=== PATIENT | female | born 1970 | race Asian ===

== ENCOUNTER 2016-09-09 07:41 | Outpatient (CLI) | payer BC ==
[~2016-09-09 07:41] MED LIST: ALPR0.2566 PO; AMBIEN5 MG OR; CARAFATE1 GM PO; GABA300C2 PO; PANT40TA PO; VALS80CA2 PO
== END 2016-09-09 08:41 | disposition home or self-care (01) ==
LOC: RAD 07:41
DX: R13.10 Dysphagia, unspecified (principal)

== ENCOUNTER 2017-01-05 08:06 | Day surgery (SDC) | payer BC ==
[~2017-01-05] VITALS: Ht 152.4 cm; Wt 68.0 kg
== END 2017-01-05 12:20 | disposition home or self-care (01) ==
LOC: OR 08:06
PROC: 0D758ZZ Dilation of Esophagus, Via Natural or Artificial Opening Endoscopic (ICD-10-PCS; principal; 2017-01-05)
DX: R13.19 Other dysphagia (principal); K22.2 Esophageal obstruction
CPT/HCPCS: J2001; J2704

== ENCOUNTER 2017-01-27 11:15 | Outpatient (CLI) | payer BC | END 2017-01-27 19:04 | disposition home or self-care (01) | LOC: US 11:15 | DX: R10.11 Right upper quadrant pain (principal); R10.13 Epigastric pain ==

== ENCOUNTER 2017-03-23 10:56 | Outpatient (CLI) | payer BC | END 2017-03-23 12:00 | disposition home or self-care (01) | LOC: NM 10:56 | DX: R10.11 Right upper quadrant pain (principal) | CPT/HCPCS: A9537 ==

== ENCOUNTER 2017-04-09 13:57 | Outpatient (CLI) | payer BC ==
[2017-04-09 14:39] LABS: POTASSIUM 3.8 mmol/L (3.6-5.2); SODIUM 139 mmol/L (136-145)
== END 2017-04-09 15:00 | disposition home or self-care (01) ==
LOC: LABW 13:57
PROVIDERS: Student in an Organized Health Care Education/Training Program
DX: R25.2 Cramp and spasm (principal)
CPT/HCPCS: 80048; 83735

== ENCOUNTER 2017-06-07 10:43 | Outpatient (CLI) | payer BC | END 2017-06-07 11:45 | disposition home or self-care (01) | LOC: LABW 10:43 | DX: E53.8 Deficiency of other specified B group vitamins (principal); R53.83 Other fatigue | CPT/HCPCS: 36415; 82607; 82746; 84439; 84443 ==

== ENCOUNTER 2018-09-09 10:04 | Outpatient (CLI) | payer OTHER | END 2018-09-09 19:40 | disposition home or self-care (01) | LOC: MAMMO 10:04 | DX: Z12.31 Encounter for screening mammogram for malignant neoplasm of breast (principal) ==

== ENCOUNTER 2018-12-02 10:07 | Outpatient (CLI) | payer OTHER | END 2018-12-02 23:20 | disposition home or self-care (01) | LOC: MAMMO 10:07 | DX: N63.20 Unspecified lump in the left breast, unspecified quadrant (principal) ==

== ENCOUNTER 2019-03-20 15:52 | Outpatient (CLI) | payer OTHER | END 2019-03-20 23:59 | disposition home or self-care (01) | LOC: RAD 15:52 | DX: M54.30 Sciatica, unspecified side (principal) ==

== ENCOUNTER 2019-04-03 10:24 | Outpatient (CLI) | payer OTHER | END 2019-04-03 22:38 | disposition home or self-care (01) | LOC: MRI 10:24 | DX: M54.41 Lumbago with sciatica, right side (principal) ==

== ENCOUNTER 2019-05-29 08:04 | Outpatient (CLI) | payer OTHER | END 2019-05-29 19:24 | disposition home or self-care (01) | LOC: NM 08:04 | DX: R10.11 Right upper quadrant pain (principal) | CPT/HCPCS: A9537 ==

== ENCOUNTER 2019-06-15 13:46 | Outpatient (CLI) | payer OTHER | END 2019-06-15 19:16 | disposition home or self-care (01) | LOC: LABW 13:46 | DX: Z00.00 Encounter for general adult medical examination without abnormal findings (principal) | CPT/HCPCS: 36415; 80074; 86592; 87535; G0432 ==

== ENCOUNTER 2019-07-28 09:21 | Outpatient (CLI) | payer OTHER ==
[2019-07-28 09:56] LABS: POTASSIUM 3.5 mmol/L (3.6-5.2)
[2019-07-28 10:44] LABS: PLATELET COUNT 365 K/uL (152-353)
== END 2019-07-28 19:27 | disposition home or self-care (01) ==
LOC: LABW 09:21
PROVIDERS: Family Medicine
DX: N95.8 Other specified menopausal and perimenopausal disorders (principal); I10 Essential (primary) hypertension
CPT/HCPCS: 36415; 80053; 80061; 82672; 83001; 84402; 84403; 84443; 84480; 85027

== ENCOUNTER 2019-09-06 14:35 | Outpatient (CLI) | payer OTHER | END 2019-09-06 20:32 | disposition home or self-care (01) | LOC: MRI 14:35 | DX: G50.0 Trigeminal neuralgia (principal) | CPT/HCPCS: A9576 ==

== ENCOUNTER 2019-10-10 12:02 | Outpatient (CLI) | payer OTHER | END 2019-10-10 19:23 | disposition home or self-care (01) | LOC: CT 12:02 | DX: M25.552 Pain in left hip (principal); M54.5 Low back pain ==

== ENCOUNTER 2019-12-25 08:34 | Emergency (ER) | payer OTHER ==
[~2019-12-25] VITALS: Ht 162.6 cm; Wt 95.3 kg
[2019-12-25 08:41] VITALS: TEMP 99.9
[2019-12-25 09:48] VITALS: BP 129/88
== END 2019-12-25 10:00 | disposition home or self-care (01) ==
LOC: ED 08:34
DX: M54.5 Low back pain (principal); M62.830 Muscle spasm of back
CPT/HCPCS: 96372; 99283; J1885

== ENCOUNTER 2020-05-22 12:37 | Outpatient (CLI) | payer OTHER | END 2020-05-22 23:25 | disposition home or self-care (01) | LOC: MAMMO 12:37 | DX: Z12.31 Encounter for screening mammogram for malignant neoplasm of breast (principal) ==

== ENCOUNTER 2020-07-24 08:34 | Outpatient (CLI) | payer OTHER | END 2020-07-24 19:59 | disposition home or self-care (01) | LOC: MRI 08:34 | PROVIDERS: ATTEND Nurse Practitioner Family | DX: M54.5 Low back pain (principal) ==

== ENCOUNTER 2020-10-03 09:01 | Outpatient (CLI) | payer OTHER ==
[2020-10-03 09:29] LABS: PLATELET COUNT 372 K/uL (152-353)
[2020-10-03 09:49] LABS: POTASSIUM 4.5 mmol/L (3.6-5.2)
== END 2020-10-03 21:43 | disposition home or self-care (01) ==
LOC: LABW 09:01
PROVIDERS: ATTEND Internal Medicine Endocrinology, Diabetes & Metabolism
DX: Z01.89 Encounter for other specified special examinations (principal); Z79.899 Other long term (current) drug therapy; R63.5 Abnormal weight gain; R53.83 Other fatigue; K21.9 Gastro-esophageal reflux disease without esophagitis; I10 Essential (primary) hypertension; F41.9 Anxiety disorder, unspecified; F32.9 Major depressive disorder, single episode, unspecified; Z83.3 Family history of diabetes mellitus
CPT/HCPCS: 36415; 80053; 80061; 81000; 82306; 82607; 83036; 85027

== ENCOUNTER 2020-11-04 13:25 | Outpatient (CLI) | payer OTHER ==
[~2020-11-04] VITALS: Ht 162.6 cm; Wt 107.5 kg
== END 2020-11-04 20:51 | disposition home or self-care (01) ==
LOC: DIABINF 13:25
PROVIDERS: ATTEND Internal Medicine Endocrinology, Diabetes & Metabolism
DX: E11.65 Type 2 diabetes mellitus with hyperglycemia (principal); I10 Essential (primary) hypertension; K21.9 Gastro-esophageal reflux disease without esophagitis; F41.1 Generalized anxiety disorder; F33.9 Major depressive disorder, recurrent, unspecified; E55.9 Vitamin D deficiency, unspecified; E66.01 Morbid (severe) obesity due to excess calories; Z68.41 Body mass index [BMI] 40.0-44.9, adult; K59.04 Chronic idiopathic constipation
CPT/HCPCS: 82948; 96365; 96366; 96521; 99204; J1718; J1815

== ENCOUNTER 2020-11-05 13:21 | Outpatient (CLI) | payer OTHER ==
[~2020-11-05] VITALS: Ht 162.6 cm; Wt 107.5 kg
== END 2020-11-05 21:11 | disposition home or self-care (01) ==
LOC: DIABINF 13:21
PROVIDERS: ATTEND Internal Medicine Endocrinology, Diabetes & Metabolism
DX: E11.65 Type 2 diabetes mellitus with hyperglycemia (principal); I10 Essential (primary) hypertension; K21.9 Gastro-esophageal reflux disease without esophagitis; F41.1 Generalized anxiety disorder; F33.9 Major depressive disorder, recurrent, unspecified; E55.9 Vitamin D deficiency, unspecified; E66.01 Morbid (severe) obesity due to excess calories; Z68.41 Body mass index [BMI] 40.0-44.9, adult; K59.04 Chronic idiopathic constipation
CPT/HCPCS: 82948; 96365; 96366; 96521; 99214; J1718; J1815

== ENCOUNTER 2020-11-13 12:46 | Outpatient (CLI) | payer OTHER ==
[~2020-11-13] VITALS: Ht 162.6 cm; Wt 107.5 kg
== END 2020-11-13 21:29 | disposition home or self-care (01) ==
LOC: DIABINF 12:46
PROVIDERS: ATTEND Internal Medicine Endocrinology, Diabetes & Metabolism
DX: E11.65 Type 2 diabetes mellitus with hyperglycemia (principal); I10 Essential (primary) hypertension; K21.9 Gastro-esophageal reflux disease without esophagitis; F41.1 Generalized anxiety disorder; F33.9 Major depressive disorder, recurrent, unspecified; E55.9 Vitamin D deficiency, unspecified; E66.01 Morbid (severe) obesity due to excess calories; Z68.41 Body mass index [BMI] 40.0-44.9, adult; K59.04 Chronic idiopathic constipation
CPT/HCPCS: 82948; 96365; 96366; 96521; 99214; J1718; J1815

== ENCOUNTER 2020-11-18 13:10 | Outpatient (CLI) | payer OTHER ==
[~2020-11-18] VITALS: Ht 162.6 cm; Wt 107.5 kg
== END 2020-11-18 22:30 | disposition home or self-care (01) ==
LOC: DIABINF 13:10
PROVIDERS: ATTEND Internal Medicine Endocrinology, Diabetes & Metabolism
DX: E11.65 Type 2 diabetes mellitus with hyperglycemia (principal); I10 Essential (primary) hypertension; K21.9 Gastro-esophageal reflux disease without esophagitis; F41.1 Generalized anxiety disorder; F33.9 Major depressive disorder, recurrent, unspecified; E55.9 Vitamin D deficiency, unspecified; E66.01 Morbid (severe) obesity due to excess calories; Z68.41 Body mass index [BMI] 40.0-44.9, adult; K59.04 Chronic idiopathic constipation
CPT/HCPCS: 82948; 96365; 96366; 96521; 99214; J1718; J1815

== ENCOUNTER 2020-11-19 13:11 | Outpatient (CLI) | payer OTHER ==
[~2020-11-19] VITALS: Ht 162.6 cm; Wt 107.5 kg
== END 2020-11-19 20:32 | disposition home or self-care (01) ==
LOC: DIABINF 13:11
PROVIDERS: ATTEND Internal Medicine Endocrinology, Diabetes & Metabolism
DX: E11.65 Type 2 diabetes mellitus with hyperglycemia (principal); I10 Essential (primary) hypertension; K21.9 Gastro-esophageal reflux disease without esophagitis; F41.1 Generalized anxiety disorder; F33.9 Major depressive disorder, recurrent, unspecified; E55.9 Vitamin D deficiency, unspecified; E66.01 Morbid (severe) obesity due to excess calories; Z68.41 Body mass index [BMI] 40.0-44.9, adult; K59.04 Chronic idiopathic constipation
CPT/HCPCS: 82948; 96365; 96366; 96521; 99214; J1718; J1815

== ENCOUNTER 2020-11-25 13:11 | Outpatient (CLI) | payer OTHER ==
[~2020-11-25] VITALS: Ht 162.6 cm; Wt 107.5 kg
== END 2020-11-25 19:39 | disposition home or self-care (01) ==
LOC: DIABINF 13:11
PROVIDERS: ATTEND Internal Medicine Endocrinology, Diabetes & Metabolism
DX: E11.65 Type 2 diabetes mellitus with hyperglycemia (principal); I10 Essential (primary) hypertension; K21.9 Gastro-esophageal reflux disease without esophagitis; F41.1 Generalized anxiety disorder; F33.9 Major depressive disorder, recurrent, unspecified; E55.9 Vitamin D deficiency, unspecified; E66.01 Morbid (severe) obesity due to excess calories; Z68.41 Body mass index [BMI] 40.0-44.9, adult; K59.04 Chronic idiopathic constipation
CPT/HCPCS: 82948; 96365; 96366; 96521; 99214; J1718; J1815

== ENCOUNTER 2020-12-03 12:50 | Outpatient (CLI) | payer OTHER ==
[~2020-12-03] VITALS: Ht 162.6 cm; Wt 107.5 kg
== END 2020-12-03 22:04 | disposition home or self-care (01) ==
LOC: DIABINF 12:50
PROVIDERS: ATTEND Internal Medicine Endocrinology, Diabetes & Metabolism
DX: E11.65 Type 2 diabetes mellitus with hyperglycemia (principal); I10 Essential (primary) hypertension; K21.9 Gastro-esophageal reflux disease without esophagitis; F41.1 Generalized anxiety disorder; F33.9 Major depressive disorder, recurrent, unspecified; E55.9 Vitamin D deficiency, unspecified; E66.01 Morbid (severe) obesity due to excess calories; Z68.41 Body mass index [BMI] 40.0-44.9, adult; K59.04 Chronic idiopathic constipation
CPT/HCPCS: 82948; 96365; 96366; 96521; J1815; J1817

== ENCOUNTER 2020-12-09 13:10 | Outpatient (CLI) | payer OTHER ==
[~2020-12-09] VITALS: Ht 162.6 cm; Wt 107.5 kg
== END 2020-12-09 19:55 | disposition home or self-care (01) ==
LOC: DIABINF 13:10
PROVIDERS: ATTEND Internal Medicine Endocrinology, Diabetes & Metabolism
DX: E11.65 Type 2 diabetes mellitus with hyperglycemia (principal); I10 Essential (primary) hypertension; K21.9 Gastro-esophageal reflux disease without esophagitis; F41.1 Generalized anxiety disorder; F33.0 Major depressive disorder, recurrent, mild; E55.9 Vitamin D deficiency, unspecified; E66.01 Morbid (severe) obesity due to excess calories; Z68.41 Body mass index [BMI] 40.0-44.9, adult; K59.04 Chronic idiopathic constipation
CPT/HCPCS: 82948; 96365; 96366; 96521; J1815; J1817

== ENCOUNTER 2020-12-13 08:32 | Outpatient (CLI) | payer OTHER ==
[2020-12-13 09:12] LABS: PLATELET COUNT 368 K/uL (152-353)
== END 2020-12-13 22:17 | disposition home or self-care (01) ==
LOC: LABW 08:32
PROVIDERS: ATTEND Nurse Practitioner
DX: R53.83 Other fatigue (principal); R60.9 Edema, unspecified; R63.5 Abnormal weight gain; Z79.899 Other long term (current) drug therapy
CPT/HCPCS: 36415; 80053; 81000; 82306; 82607; 82746; 83880; 84439; 84443; 85027; 93005

== ENCOUNTER 2020-12-17 12:19 | Outpatient (CLI) | payer OTHER ==
[~2020-12-17] VITALS: Ht 162.6 cm; Wt 107.5 kg
== END 2020-12-17 22:07 | disposition home or self-care (01) ==
LOC: DIABINF 12:19
PROVIDERS: ATTEND Internal Medicine Endocrinology, Diabetes & Metabolism
DX: E11.65 Type 2 diabetes mellitus with hyperglycemia (principal); I10 Essential (primary) hypertension; K21.9 Gastro-esophageal reflux disease without esophagitis; F41.1 Generalized anxiety disorder; F33.0 Major depressive disorder, recurrent, mild; E55.9 Vitamin D deficiency, unspecified; E66.01 Morbid (severe) obesity due to excess calories; Z68.41 Body mass index [BMI] 40.0-44.9, adult; K59.04 Chronic idiopathic constipation
CPT/HCPCS: 82948; 96365; 96366; 96521; J1815; J1817

== ENCOUNTER 2021-01-29 14:43 | Outpatient (CLI) | payer OTHER | END 2021-01-29 22:19 | disposition home or self-care (01) | LOC: LABW 14:43 | PROVIDERS: ATTEND Internal Medicine Endocrinology, Diabetes & Metabolism | DX: E11.65 Type 2 diabetes mellitus with hyperglycemia (principal); I10 Essential (primary) hypertension; E55.9 Vitamin D deficiency, unspecified; E66.01 Morbid (severe) obesity due to excess calories; F41.9 Anxiety disorder, unspecified; F32.9 Major depressive disorder, single episode, unspecified; K21.9 Gastro-esophageal reflux disease without esophagitis | CPT/HCPCS: 36415; 80053; 80061; 82306; 83036; 83525; 84681 ==

== ENCOUNTER 2021-02-24 12:10 | Outpatient (CLI) | payer OTHER ==
[2021-02-24 12:34] LABS: PLATELET COUNT 354 K/uL (152-353)
== END 2021-02-24 22:42 | disposition home or self-care (01) ==
LOC: LAB 12:10
PROVIDERS: ATTEND Nurse Practitioner Family
DX: J02.0 Streptococcal pharyngitis (principal); Z03.89 Encounter for observation for other suspected diseases and conditions ruled out
CPT/HCPCS: 36415; 85027; 87651

== ENCOUNTER 2021-04-03 12:21 | Outpatient (CLI) | payer OTHER | END 2021-04-03 19:12 | disposition home or self-care (01) | LOC: LABW 12:21 | PROVIDERS: ATTEND Family Medicine | DX: R39.15 Urgency of urination (principal); R10.2 Pelvic and perineal pain | CPT/HCPCS: 81000 ==

== ENCOUNTER 2021-05-02 14:26 | Outpatient (CLI) | payer OTHER ==
[2021-05-02 15:35] LABS: POTASSIUM 3.7 mmol/L (3.6-5.2)
== END 2021-05-02 19:46 | disposition home or self-care (01) ==
LOC: LABW 14:26
PROVIDERS: ATTEND Nurse Practitioner Family
DX: Z03.89 Encounter for observation for other suspected diseases and conditions ruled out (principal)
CPT/HCPCS: 36415; 80053; 82728; 85379; 86140

== ENCOUNTER 2021-10-28 09:56 | Outpatient (CLI) | payer OTHER | END 2021-10-28 19:06 | disposition home or self-care (01) | LOC: MAMMO 09:56 | PROVIDERS: ATTEND Family Medicine | DX: Z12.31 Encounter for screening mammogram for malignant neoplasm of breast (principal) ==

== ENCOUNTER 2022-02-06 09:20 | Outpatient (CLI) | payer OTHER ==
[2022-02-06 09:50] LABS: PLATELET COUNT 348 K/uL (152-353)
== END 2022-02-06 20:51 | disposition home or self-care (01) ==
LOC: LABW 09:20
PROVIDERS: ATTEND Nurse Practitioner Family
DX: E03.8 Other specified hypothyroidism (principal)
CPT/HCPCS: 36415; 80061; 82306; 82607; 82670; 83001; 83002; 84403; 84436; 84443; 84481; 85027; 86376

== ENCOUNTER 2022-11-11 12:54 | Outpatient (CLI) | payer OTHER | END 2022-11-11 19:33 | disposition home or self-care (01) | LOC: MRI 12:54 | PROVIDERS: ATTEND Nurse Practitioner Primary Care | DX: M48.061 Spinal stenosis, lumbar region without neurogenic claudication (principal) ==

== ENCOUNTER 2022-12-01 13:24 | Outpatient (CLI) | payer OTHER | END 2022-12-01 19:02 | disposition home or self-care (01) | LOC: RAD 13:24 | PROVIDERS: ATTEND Nurse Practitioner Family | DX: M25.551 Pain in right hip (principal) ==

== ENCOUNTER 2022-12-05 21:20 | Emergency (ER) | payer OTHER ==
[~2022-12-05] VITALS: Ht 162.6 cm; Wt 85.3 kg
[2022-12-05 21:20] VITALS: TEMP 97.6
[2022-12-05 21:58] LABS: PLATELET COUNT 336 K/uL (152-353)
[2022-12-05 22:11] LABS: POTASSIUM 3.9 mmol/L (3.6-5.2); SODIUM 139 mmol/L (136-145)
[2022-12-06 00:10] VITALS: BP 121/74
== END 2022-12-06 00:10 | disposition home or self-care (01) ==
LOC: ED 21:20
PROVIDERS: Emergency Medicine
DX: R07.9 Chest pain, unspecified (principal)
CPT/HCPCS: 80048; 84484; 85027; 93005; 96372; 99283; J1885; J2360

== ENCOUNTER 2022-12-25 10:49 | Outpatient (CLI) | payer OTHER | END 2022-12-25 19:00 | disposition home or self-care (01) | LOC: MRI 10:49 | PROVIDERS: ATTEND Physician Assistant Surgical | DX: M25.551 Pain in right hip (principal); S76.011A Strain of muscle, fascia and tendon of right hip, initial encounter; Y92.89 Other specified places as the place of occurrence of the external cause ==

== ENCOUNTER 2023-03-01 08:54 | Outpatient (CLI) | payer OTHER | END 2023-03-01 19:05 | disposition home or self-care (01) | LOC: MAMMO 08:54 | PROVIDERS: ATTEND Family Medicine | DX: Z12.31 Encounter for screening mammogram for malignant neoplasm of breast (principal); Z13.820 Encounter for screening for osteoporosis; N95.8 Other specified menopausal and perimenopausal disorders ==

== ENCOUNTER 2023-04-09 14:15 | Outpatient (CLI) | payer OTHER | END 2023-04-09 19:22 | disposition home or self-care (01) | LOC: US 14:15 | PROVIDERS: ATTEND Nurse Practitioner Family | DX: N63.0 Unspecified lump in unspecified breast (principal) | CPT/HCPCS: G0279 ==

== ENCOUNTER 2023-04-28 10:30 | Day surgery (SDC) | payer OTHER ==
[~2023-04-28] VITALS: Ht 165.1 cm; Wt 68.0 kg
== END 2023-04-28 13:55 | disposition home or self-care (01) ==
LOC: OR 10:30
PROVIDERS: ATTEND Internal Medicine Gastroenterology
PROC: 0DBK8ZX Excision of Ascending Colon, Via Natural or Artificial Opening Endoscopic, Diagnostic (ICD-10-PCS; principal; 2023-04-28)
PROC: 0DBL8ZX Excision of Transverse Colon, Via Natural or Artificial Opening Endoscopic, Diagnostic (ICD-10-PCS; 2023-04-28)
DX: Z12.11 Encounter for screening for malignant neoplasm of colon (principal); D12.2 Benign neoplasm of ascending colon; D12.3 Benign neoplasm of transverse colon; K57.30 Diverticulosis of large intestine without perforation or abscess without bleeding; K64.8 Other hemorrhoids
CPT/HCPCS: J2704; J7120

== ENCOUNTER 2023-09-13 14:47 | Outpatient (CLI) | payer OTHER ==
[~2023-09-13 14:47] MED LIST changes: +IBU800 MG PO; +ONDA4TAB3 PO
[2023-09-13 15:10] LABS: PLATELET COUNT 295 K/uL (152-353)
[2023-09-13 16:07] LABS: POTASSIUM 3.8 mmol/L (3.6-5.2)
== END 2023-09-13 19:23 | disposition home or self-care (01) ==
LOC: RAD 14:47 → LABW 14:47
PROVIDERS: ATTEND Nurse Practitioner Family
DX: Z01.818 Encounter for other preprocedural examination (principal); E11.65 Type 2 diabetes mellitus with hyperglycemia; I10 Essential (primary) hypertension; E66.01 Morbid (severe) obesity due to excess calories; R53.83 Other fatigue; R23.2 Flushing; E55.9 Vitamin D deficiency, unspecified; R68.89 Other general symptoms and signs
CPT/HCPCS: 80048; 82670; 83001; 84403; 85027